=== PATIENT | female | born 1990 | race Caucasian/White ===

== ENCOUNTER 2024-06-29 10:18 | Emergency (ER) | payer OTHER ==
[~2024-06-29] VITALS: Ht 180.3 cm; Wt 147.7 kg
[2024-06-29] MEDS ORDERED: ACET-2247 PO (10:24)
[2024-06-29] MEDS ORDERED: IBUP-45 PO (10:24)
[2024-06-29 10:25] VITALS: TEMP 98.6
[2024-06-29 10:34] LABS: COVID AG,FIA SOURCE NASAL SWAB
[2024-06-29 11:53] LABS: SARS-COV2 (COVID) ANTIGEN,FIA Negative (Negative)
[2024-06-29 11:54] LABS: INFLUENZA TYPE A POSITIVE FOR TYPE A (NEGATIVE)
[2024-06-29 11:55] LABS: INFLUENZA TYPE B NEGATIVE FOR TYPE B (NEGATIVE)
[2024-06-29] MEDS: ONDANSETRON 4 MG TABLET PO ONE (12:27)
[2024-06-29] MEDS: IBUPROFEN 400 MG TABLET PO ONE (12:27)
[2024-06-29] MEDS: ACETAMINOPHEN 500 MG TABLET PO ONE (12:27)
[2024-06-29] MEDS ORDERED: ONDA-104 PO (12:34)
[2024-06-29 13:00] VITALS: BP 144/56; PULSE 84; RESP 17; O2SAT 98
== END 2024-06-29 13:19 | disposition home or self-care (01) ==
LOC: EMS 10:18
DX: J10.1 Influenza due to other identified influenza virus with other respiratory manifestations (principal); I10 Essential (primary) hypertension; F17.210 Nicotine dependence, cigarettes, uncomplicated; F12.90 Cannabis use, unspecified, uncomplicated; Z20.822 Contact with and (suspected) exposure to COVID-19
CPT/HCPCS: 99284; 87426; 87804; Q0162